=== PATIENT | male | born 1995 | race Caucasian/White ===

== ENCOUNTER 2017-08-28 17:42 | Emergency (ER) | payer BC, SELFPAY ==
[2017-08-28 18:00] VITALS: BP 148/76; PULSE 86; RESP 20; TEMP 36.9; O2SAT 98; BMI 33.3
[2017-08-28 18:20] LABS: UTC Influenza A Antigen Negative (Negative); UTC Influenza B Antigen Negative (Negative)
--- NOTE | 2017-08-28 18:38 | HMH.EDUTC ---
[facility] [place] Clinical Impression: Viral upper respiratory illness Disposition: Home, Self-Care Condition on Discharge: Good Instructions: DI for Viral Upper Respiratory Infection -- Adult Additional Instructions: * No sign of bacterial infection. Likely viral. Virus can take 7-14 days to run their course * Monitor Temp. Tylenol every 4 hours as needed no more then 5 times a day or 4000mg in 24 hours and/or ibuprofen every 6 hours as needed no more then 3200mg in 24 hours (as long as your primary care doctor has told you that it is ok to take both) for fever/aches/pain. ER if fever no less than 101 despite tylenol and ibuprofen * Encourage fluids, water, gatorade, powerade, pedialyte if infant/toddler/child * warm salt water gargles * warm fluids * sore throat lozenges * sleep elevated * humidifier/vaporizer Follow up IMMEDIATELY for new or worsening symptoms OR no noticeable improvement over the next 48-72 hours. 911 for difficulty breathing or swallowing. Forms: Work/School Release Time of Disposition: 18:46 Medical Decision Making Vital Signs: 08/28/17 18:00 Temperature 98.5 F Temperature Source Temporal Artery Scan Pulse Rate [Right Brachial] 86 Respiratory Rate 20 Blood Pressure [Right Arm] 148/76 Blood Pressure Mean [Right Arm] 100 Blood Pressure Source [Right Arm] Automatic Cuff Blood Pressure Position [Right Arm] Sitting 02 Sat by Pulse Oximetry 98 Oxygen Delivery Method Room Air - Lab Data Lab results reviewed: Yes: I reviewed the patient's lab results. Lab Results 08/28/17 17:56: Influenza Type A Ag Negative, Influenza Type B Ag Negative - Andreas Inquiry Pt receiving controlled substance: No [facility] [place] - General Stated complaint: cough,fever,up set stomach Time Seen by Provider: 08/28/17 18:39 Mode of Arrival: Ambulatory Source of Information: Patient Limitations: No Limitations Description of Symptoms (Recalled from Triage Doc. by RN): POSSIBLE FLU HEENT Symptoms (Recalled from RN notes): No Resp Symptoms (Recalled from RN notes): Yes (POSSIBLE FLU) Skin Symptoms (Recalled from RN notes): No MS Symptoms (Recalled from RN notes): No Functional Status (Recalled from RN notes): N/A - History of Present Illness Provider Complaint: c/o I really just want to make sure this is not the flu . Exposed at work. Nonproductive cough, fever, nausea intermittently. Started day before yesterday. Fever 100.2 this morning. Hasn't taken or tried anything for symptoms. - Related Data Allergies Allergy/AdvReac Type Severity Reaction Status Date / Time clindamycin [CLINDAMYCIN] Allergy Unknown Unverified 06/30/17 14:58 Penicillins [PENICILLINS] Allergy Unknown Unverified 06/30/17 14:58 IMIDAZOLINE Allergy Unknown Uncoded 06/30/17 14:58 - Worker's Comp Is this a Worker's Comp case?: No [facility] History I have reviewed the patient's past medical history: Yes Medical History: Denies:: Cancer, Diabetes Mellitus Type 1, Diabetes Mellitus Type 2, Hypertension, MRSA Other Surgeries: Yes: Other (cardiac ablation) Amputation: No Fractures: No - *Social History Smoking Status: Current every day smoker Tobacco Type: cigarettes Alcohol Intake: never - Psychiatric History Expresses thoughts of harming self/others: None Suicide Plan Description: No Plan ROS Obtained: Yes Systems reviewed as appropriate & no additional complaints - Constitutional Constitutional: Reports as per HPI, Denies body ache, Denies chills, Denies fatigue, Denies poor appetite - Eyes Eyes: Denies eye discharge, Denies eye pain, Denies other (eye redness) - ENT Ears, Nose, Mouth, and Throat: Denies difficulty swallowing, Denies otalgia, Reports nasal congestion, Reports nasal discharge, Denies pain with swallowing, Denies sore throat - Cardiovascular Cardiovascular: Denies chest pain, Denies irregular heart rhythm - Respiratory Respiratory: No chest congestion, Yes non-productive cough, No dyspnea, No wheezing -
--- NOTE | 2017-08-28 18:44 | ED_ITS ---
[facility] [place] Disposition Clinical Impression: Viral upper respiratory illness Disposition: Home, Self-Care Condition on Discharge: Good Instructions: DI for Viral Upper Respiratory Infection -- Adult Additional Instructions: * No sign of bacterial infection. Likely viral. Virus can take 7-14 days to run their course * Monitor Temp. Tylenol every 4 hours as needed no more then 5 times a day or 4000mg in 24 hours and/or ibuprofen every 6 hours as needed no more then 3200mg in 24 hours (as long as your primary care doctor has told you that it is ok to take both) for fever/aches/pain. ER if fever no less than 101 despite tylenol and ibuprofen * Encourage fluids, water, gatorade, powerade, pedialyte if infant/toddler/ child * warm salt water gargles * warm fluids * sore throat lozenges * sleep elevated * humidifier/vaporizer Follow up IMMEDIATELY for new or worsening symptoms OR no noticeable improvement over the next 48-72 hours. 911 for difficulty breathing or swallowing. Forms: Work/School Release Time of Disposition: 18:46 Medical Decision Making Vital Signs: 08/28/17 18:00 Temperature 98.5 F Temperature Source Temporal Artery Scan Pulse Rate [Right Brachial] 86 Respiratory Rate 20 Blood Pressure [Right Arm] 148/76 Blood Pressure Mean [Right Arm] 100 Blood Pressure Source [Right Arm] Automatic Cuff Blood Pressure Position [Right Arm] Sitting 02 Sat by Pulse Oximetry 98 Oxygen Delivery Method Room Air - Lab Data Lab results reviewed: Yes: I reviewed the patient's lab results. Lab Results 08/28/17 17:56: Influenza Type A Ag Negative, Influenza Type B Ag Negative - Andreas Inquiry Pt receiving controlled substance: No [facility] [place] HPI - General Stated complaint: cough,fever,up set stomach Time Seen by Provider: 08/28/17 18:39 Mode of Arrival: Ambulatory Source of Information: Patient Limitations: No Limitations Description of Symptoms (Recalled from Triage Doc. by RN): POSSIBLE FLU HEENT Symptoms (Recalled from RN notes): No Resp Symptoms (Recalled from RN notes): Yes (POSSIBLE FLU) Skin Symptoms (Recalled from RN notes): No MS Symptoms (Recalled from RN notes): No Functional Status (Recalled from RN notes): N/A - History of Present Illness Provider Complaint: c/o I really just want to make sure this is not the flu . Exposed at work. Nonproductive cough, fever, nausea intermittently. Started day before yesterday. Fever 100.2 this morning. Hasn't taken or tried anything for symptoms. - Related Data Allergies Allergy/AdvReac Type Severity Reaction Status Date / Time clindamycin [CLINDAMYCIN] Allergy Unknown Unverified 06/30/17 14:58 Penicillins [PENICILLINS] Allergy Unknown Unverified 06/30/17 14:58 IMIDAZOLINE Allergy Unknown Uncoded 06/30/17 14:58 - Worker's Comp Is this a Worker's Comp case?: No [facility] History I have reviewed the patient's past medical history: Yes Medical History: Denies:: Cancer, Diabetes Mellitus Type 1, Diabetes Mellitus Type 2, Hypertension, MRSA Other Surgeries: Yes: Other (cardiac ablation) Amputation: No Fractures: No - *Social History Smoking Status: Current every day smoker Tobacco Type: cigarettes Alcohol Intake: never - Psychiatric History Expresses thoughts of harming self/others: None Suicide Plan Description: No Plan ROS Obtained: Yes Systems reviewed as appropriate & no additional complaints - C
[2017-08-28 18:46] VITALS: BP 137/77; PULSE 98; RESP 20; TEMP 37.1; O2SAT 98
== END 2017-08-28 18:47 | disposition home or self-care (01) ==
PROVIDERS: Emergency Provider Nurse Practitioner Family; Family Provider Family Medicine
DX: J06.9 Acute upper respiratory infection, unspecified (principal); Z88.0 Allergy status to penicillin
CPT/HCPCS: 87804; 99202

== ENCOUNTER → 2018-08-21 08:08 | Outpatient (CLI) | payer MEDICAID, SELFPAY ==
[2018-08-21 09:04] LABS: Basophils % 0.5 % (0.1-2.0); Eosinophils # 0.1 K/mm3 (0.0-0.4); Eosinophils % 1.4 % (0.1-12.0); Hematocrit 46.2 % (42.0-52.0); Hemoglobin 14.5 g/dL (14.1-18.0); Lymphocytes # 1.9 K/mm3 (0.7-4.5); Lymphocytes % 32.2 % (10-50); Mean Corpuscular HGB Conc 31.5 g/dL (31.8-35.4); Mean Corpuscular Hemoglobin 27.4 pg (27.0-31.2); Mean Corpuscular Volume 87.2 fl (80-94); Mean Platelet Volume 8.5 fl (7.4-10.4); Monocytes # 0.4 K/mm3 (0.1-1.0); Monocytes % 6.8 % (1.7-9.3); Neutrophils # 3.5 K/mm3 (1.8-7.8); Neutrophils % 59.1 % (37.0-80.0); Platelet Count 202 K/mm3 (142-424); Red Cell Distribution Width 13.7 % (11.5-17.5)
[2018-08-21 13:24] LABS: Hemoglobin A1C 5.6 % (0.0-7.0)
[2018-08-21 14:03] LABS: Anion Gap 12.1 mEq/L (5-15); Blood Urea Nitrogen 16 mg/dL (7-18); Calcium 8.5 mg/dL (8.5-10.1); Carbon Dioxide 27 mmol/L (21.0-32.0); Chloride 107 mmol/L (98-107); Creatinine,Serum 0.77 mg/dL (0.70-1.30); Estimated Glomerular Filt Rate 125 ml/min (>60); GFR (African American) 151 ML/MIN (>60); Glucose 94 mg/dL (74-106); Potassium 4.1 mmoL/L (3.5-5.1); Sodium 142 mmol/L (136-145)
[2018-08-24 07:21] LABS: C-Peptide 4.3 ng/mL (1.1-4.4); Insulin Level Total 21.3 uIU/mL (2.6-24.9)
== END ==
PROVIDERS: Visit Provider Internal Medicine Adolescent Medicine
DX: E16.2 Hypoglycemia, unspecified (principal)
CPT/HCPCS: 36415; 80048; 80053; 82533; 82947; 83036; 83525; 84681; 85025

== ENCOUNTER → 2019-12-08 11:54 | Outpatient (CLI) | payer OTHER, SELFPAY ==
[2019-12-09 16:22] LABS: Covid-19 Nasal PCR Sendout Lex NOT DETECTED
== END ==
PROVIDERS: PCP Internal Medicine Adolescent Medicine; Visit Provider Internal Medicine Adolescent Medicine
DX: Z03.818 Encounter for observation for suspected exposure to other biological agents ruled out (principal); R50.9 Fever, unspecified
CPT/HCPCS: 36415; U0004

== ENCOUNTER → 2021-07-12 13:58 | Outpatient (CLI) | payer SELFPAY | PROVIDERS: PCP Internal Medicine Adolescent Medicine; Visit Provider Nurse Practitioner Family | DX: U07.1 COVID-19 (principal) | CPT/HCPCS: C9803; U0003; U0005 ==

== ENCOUNTER 2022-02-12 11:32 | Emergency (ER) | payer OTHER, SELFPAY ==
--- NOTE | 2022-02-12 11:43 | HMH.EDUTC ---
[facility] [place] Disposition Clinical Impression: Viral syndrome, Exposure to COVID-19 virus Disposition: Home, Self-Care Condition on Discharge: Good Instructions: DI for COVID-19 (Suspected or Confirmed ), Preventing the Spread of Coronavirus Discharge Instructions Additional Instructions: Drink plenty of fluids. Take tylenol or ibuprofen for pain or fever. Take the medications as directed. Follow up with your regular doctor. GO TO THE ER FOR ANY WORSENING SYMPTOMS Quarantine until you know the results of your covid-19 test. Notify your school or workplace of your results and follow their instructions regarding return to work/school. Prescriptions: Brompheniramine/Pseudoephed/Dm [Bromfed Dm Cough Syrup] 5 ml PO Q6HP PRN #240 ml PRN Reason: Cough Transmission Status: Received by [id number] Ondansetron [Zofran 4mg ODT] 4 mg PO Q8HP PRN #20 tab PRN Reason: Nausea Transmission Status: Received by [id number] Benzonatate [Benzonatate 100mg cap] 100 mg PO TIDP PRN #30 cap PRN Reason: Cough Transmission Status: Received by [id number] Referrals: Patrick Yo MD [Primary Care Provider] - Forms: Work/School Release Time of Disposition: 12:01 Medical Decision Making - Medical Records Medical records reviewed: No: I reviewed the patient's medical records. - Andreas Inquiry Pt receiving controlled substance: No Vital Signs: 02/12/22 11:47 02/12/22 12:08 Temperature 99.7 F H 99.7 F H Temperature Source Oral Pulse Rate 84 Pulse Rate [Left] 84 Respiratory Rate 16 16 Blood Pressure 148/84 H Blood Pressure [Right Arm] 148/84 H Blood Pressure Mean [Right Arm] 105 02 Sat by Pulse Oximetry 97 Orders (Tests/Meds): ORDERS Category Date Time Status Covid-19 Nasal PCR ([facility]) Routine Lab 02/12/22 11:[address] [facility] [place] HPI - General Stated complaint: covid test Time Seen by Provider: 02/12/22 11:43 - History of Present Illness Provider Complaint: He states that he started having fever and body aches last night. He was exposed to covid-19 from his son having it. He denies significant shortness of breath. - Related Data Home Medications Medication Instructions Recorded Confirmed Escitalopram Oxalate [Lexapro] 20 mg PO DAILY 05/10/19 07/16/20 Previous Rx's Medication Instructions Recorded Benzonatate [Benzonatate 100mg 100 mg PO TIDP PRN #30 cap 02/12/22 cap] Brompheniramine/Pseudoephed/Dm 5 ml PO Q6HP PRN #240 ml 02/12/22 [Bromfed Dm Cough Syrup] Ondansetron [Zofran 4mg ODT] 4 mg PO Q8HP PRN #20 tab 02/12/22 Allergies Allergy/AdvReac Type Severity Reaction Status Date / Time clindamycin [CLINDAMYCIN] Allergy Unknown Verified 07/16/20 15:22 Penicillins [PENICILLINS] Allergy Unknown Verified 07/16/20 15:22 IMIDAZOLINE Allergy Unknown Uncoded 07/16/20 15:22 [facility] History - Hepatitis A Screen Attestation statement:: This patient has been screened for Hepatitis A risk factors. I have reviewed the patient's past medical history: Yes Medical History: Reports:: Anxiety Denies:: Cancer, Diabetes Mellitus Type 1, Diabetes Mellitus Type 2, Hypertension, MRSA Comment: Arteaga Barkerson's White syndrome Other Surgeries: Yes: Other (heart ablation) Amputation: No Fractures: Yes (elbow age 6) - Social History Smoking Status: Never smoker Tobacco Type: smokeless tobacco # Packs/Day (cigarettes): 0 Alcohol Intake: never Substance Use Type: denies use Occupational Status: unemployed - Psychiatric History Pschychiatric History:: Reports:: Anxiety Family Hx:: Hypertension ROS Obtained: Yes All systems reviewed & no additional complaints - Constitutional Constitutional: Reports as per HPI - Eyes Eyes: Denies eye discharge - ENT Ears, Nose, Mouth, and Throat: Reports as per HPI - Cardiovascular Cardiovascular: Denies chest pain - Respiratory Respiratory: Denies chest congestion, Reports cough Phys
[2022-02-12 11:47] VITALS: BP 148/84; PULSE 84; RESP 16; TEMP 37.6; O2SAT 97; BMI 33.2
[2022-02-12 12:08] VITALS: BP 148/84; PULSE 84; RESP 16; TEMP 37.6
== END 2022-02-12 12:08 | disposition home or self-care (01) ==
PROVIDERS: Emergency Provider Nurse Practitioner Family; PCP Internal Medicine Adolescent Medicine
DX: U07.1 COVID-19 (principal)
CPT/HCPCS: 99212; C9803; G0463; U0003; U0005

== ENCOUNTER 2022-05-20 16:07 | Emergency (ER) | payer OTHER, SELFPAY ==
[2022-05-20 17:50] VITALS: BP 125/70; PULSE 60; RESP 19; TEMP 36.8; O2SAT 98; BMI 32.3
[2022-05-20 18:07] LABS: UTC Influenza A Antigen Negative (Negative); UTC Influenza B Antigen Negative (Negative); UTC Strep Screen (Rapid) Positive (Negative)
--- NOTE | 2022-05-20 18:08 | EXP.UTC ---
Discharge Plan Disposition Patient Disposition: Home, Self-Care Condition: Good Prescriptions Prescriptions: New azithromycin [Zithromax Z-Damián] 250 mg tablet See Rx Instructions .ROUTE .COMPLEX 5 Days Qty: 6 0RF Rx Instructions: For 250 mg dose pack: take 500 mg today (day 1), then 250 mg for 4 days (days 2-5) benzonatate 100 mg capsule 100 mg PO TID PRN (Reason: cough) Qty: 30 0RF No Action escitalopram oxalate 20 MG tablet 20 mg PO DAILY Referrals Follow up/Referrals: Patrick Yo MD [Primary Care Provider] - See instructions Activity Restrictions/Add. Instructions Additional Instructions/Restrictions: *Monitor Temp, Over the counter Motrin or Tylenol as directed/as needed Tylenol every 4 hours and Motrin every 6 hours (as long as your family doctor has told you that you can take it) for fever or pain. and straight to ER if unable to lower temp less than 101.0 after medication given *Warm salt water gargles may help to soothe the throat *Throat Lozenges? *Warm fluids like tea with honey may help to soothe the throat? *Sleep elevated *Humidifier/Vaporizer *If you did not take Penicillin shot or was unable to, start taking antibiotic immediately and make sure that you take it for the FULL length of time although you should start to feel better in 24-48 hours *change toothbrush and toothpaste 24-48 hours after starting to take antibiotics so you do not reinfect yourself Monitor Temp. Tylenol and/or Ibuprofen as needed. ER if fever is no less than 101 despite alternating Tylenol and Ibuprofen * Encourage fluids, water, Gatorade, powerade, pedialyte if /toddler/or child *Cold fluids, popsicles and ice cream may feel good on his throat Follow up IMMEDIATELY for new or worsening symptoms or no Noticeable improvement over the next 48-72 hours. 911 for difficulty breathing or swallowing Clinical Impressions Clinical Impression: Strep throat Stand Alone Forms Stand Alone Forms: Work/School Release Instructions Patient Instructions: DI for Strep Throat, Strep Throat Discharge ED Provider: Daisy Jones [facility] [place] HPI General Stated complaint: sore throat, cough Mode of Arrival: Ambulatory Source of Information: Patient Limitations: No Limitations Time Seen by Provider: 05/20/22 18:09 Description of Symptoms (Recalled from Triage Doc. by RN): PATIENT C/O SORE THROAT, COUGH, AND CONGESTION THAT STARTED THIS MORNING HEENT Symptoms (Recalled from RN notes): Yes Resp Symptoms (Recalled from RN notes): Yes Skin Symptoms (Recalled from RN notes): No MS Symptoms (Recalled from RN notes): No Functional Status (Recalled from RN notes): WNL History of Present Illness Provider Complaint: Patient states that he started this morning with sore throat, cough and nasal congestion States that as the day went on his throat was hurting worse so he came in to get it checked Related Data Home Medications Medication Instructions Recorded Confirmed escitalopram oxalate 20 mg tablet 20 mg PO DAILY Anxiety 05/10/19 05/20/22 Previous Rx's Medication Instructions Recorded azithromycin 250 mg tablet See Rx Instructions PO .COMPLEX 5 05/20/22 (Zithromax Z-Damián) days #6 tabs benzonatate 100 mg capsule 100 mg PO TID PRN cough #30 caps 05/20/22 Allergies Allergy/AdvReac Type Severity Reaction Status Date / Time clindamycin [CLINDAMYCIN] Allergy Unknown Verified 07/16/20 15:22 Penicillins [PENICILLINS] Allergy Unknown Verified 07/16/20 15:22 IMIDAZOLINE Allergy Unknown Uncoded 07/16/20 15:22 Worker's Comp Is this a Worker's Comp case?: No PFSH PFSH Medical History (Updated 05/20/22 @ 18:14 by Daisy Jones APRN) Anxiety Social History (Updated 05/20/22 @ 18:06 by Mary Villanueva RN) Smoking Status: Current every day smoker tobacco type: smokeless tobacco alcohol intake: never substance use type: denies use current occupational status: unemployed [employer]
[2022-05-20 18:17] VITALS: BP 125/70; PULSE 60; RESP 19; TEMP 36.8; O2SAT 98
== END 2022-05-20 18:21 | disposition home or self-care (01) ==
PROVIDERS: Emergency Provider Nurse Practitioner; PCP Internal Medicine Adolescent Medicine
DX: J02.0 Streptococcal pharyngitis (principal); B95.0 Streptococcus, group A, as the cause of diseases classified elsewhere; R05.9 Cough, unspecified; F17.290 Nicotine dependence, other tobacco product, uncomplicated; Z88.0 Allergy status to penicillin; Z88.1 Allergy status to other antibiotic agents; Z88.3 Allergy status to other anti-infective agents; Z88.8 Allergy status to other drugs, medicaments and biological substances
CPT/HCPCS: 87804; 87880; 99213; G0463